=== PATIENT | female | born 1960 | race Caucasian/White ===

== ENCOUNTER → 2020-12-27 | Outpatient (CLI) | payer BC, OTHER ==
[~2020-12-27] MED LIST: ALBUTEROL2.5 MG/3 M INH; OMEPRAZOLE40 MG PO; ONDANSETRON HCL4 M2 PO; OXYCODONE HCL10 MG PO
== END ==
LOC: CAT 10:12 → RAD 10:12
PROVIDERS: ATTEND Internal Medicine
DX: R91.8 Other nonspecific abnormal finding of lung field (principal); J98.11 Atelectasis; J92.9 Pleural plaque without asbestos; J94.2 Hemothorax; R06.00 Dyspnea, unspecified

== ENCOUNTER 2021-01-02 06:11 | Inpatient (IN) | payer BC, OTHER ==
[2020-12-29 13:51] LABS: URINE BILIRUBIN NEGATIVE (Negative); URINE BLOOD TRACE (Negative); URINE CLARITY CLEAR; URINE COLOR YELLOW; URINE GLUCOSE-RANDOM* NEGATIVE (Negative); URINE KETONES NEGATIVE (Negative); URINE LEUKOCYTES-REFLEX NEGATIVE (Negative); URINE NITRITE-REFLEX NEGATIVE (Negative); URINE PROTEIN (DIPSTICK) NEGATIVE (Negative); URINE SPECIFIC GRAVITY >= 1.030 (1.005-1.035); URINE UROBILINOGEN 0.2 E.U./dl (0.2-1.0)
[2020-12-29 13:54] LABS: ABSOLUTE NEUTROPHILS 7.3 thou/uL (1.4-8.2); BASOPHILS 0.3 % (0.0-2.0); EOSINOPHILS 0.8 % (0.0-3.0); HEMATOCRIT 32.8 % (37.0-47.0); HEMOGLOBIN 10.5 gm/dL (12.0-15.0); LYMPHOCYTES 24.3 % (24.0-44.0); MCH 26.8 pg (26.0-34.0); MCHC 31.9 g/dL (28.0-37.0); MCV 83.9 fL (80.0-100.0); MONOCYTES 9.2 % (1.0-8.0); PLATELET COUNT 584 thou/uL (150-400); POLYS 65.4 % (36.0-66.0); RBC 3.91 mil/uL (4.20-5.00); WBC 11.2 thou/uL (4.0-11.0)
[2020-12-29 14:03] LABS: ALBUMIN 2.6 g/dL (3.4-5.0); APTT 29.1 Seconds (24.5-32.8); CALCIUM 8.9 mg/dL (8.5-10.1); INR 1.04; POTASSIUM 4.7 mmol/L (3.5-5.1); PROTIME 11.3 Seconds (10.5-12.1); TOTAL BILIRUBIN 0.3 mg/dL (0.2-1.0); TOTAL PROTEIN 6.8 g/dL (6.4-8.2)
--- NOTE | 2020-12-30 13:08 | EKG ---
[address] [address] ELECTROCARDIOGRAM REPORT Name: MARK SANTANA Room #: PRE IN ..#: [id number] Admission: Attend Phys: Mika Garcia MD Discharge: Date of : 56 Report #: [id number] [facility] Test Date: 2020-12-29 Test Time: 13:44:43 Pat Name: MARK SANTANA Department: Room: Gender: Parts Person: TASH : 1960 Requested By: Mika Garcia Order Number: [id number] MD: Vipin Ansari Measurements Intervals [place] Rate: 82 P: 30 WI: 156 QRS: -30 QRSD: 90 T: 11 QT: 374 QTc: 437 Interpretive Statements Sinus rhythm Probable left ventricular hypertrophy No previous ECG available for comparison Electronically Signed On 12-30-2020 13:08:40 CDT by Vipin Ansari [email or web address] <ELECTRONICALLY SIGNED> By: Vipin Ansari MD 12/30/20 1308 1344 1344 Vipin Ansari MD /EPI
[~2021-01-02] VITALS: Ht 160 cm; Wt 77.0 kg
[2021-01-02] VITALS (35 sets, daily range): BP systolic 114–138; BP diastolic 69–90
--- NOTE | 2021-01-02 15:15 | NUR ---
CASER UP PUMP CLEARED 3.5ML.
--- NOTE | 2021-01-02 18:46 | NUR ---
PT PROGRESSING TOWARDS GOALS. AMANDA CALDERA.
--- NOTE | 2021-01-02 19:12 | NUR ---
TOBACCO EDUCATOR PUMP CLEARED 5.0 ML.
--- NOTE | 2021-01-02 20:33 | NUR ---
This RN spoke to pharmacist at 2029. Patient arrived to ICU room 249 during day shift with a Fentanyl manager content pump running. Nurse in OR or PACU never scanned Fentanyl bag or signed blue sheet. Discussed issue with pharmacist. Was instructed to sign blue sheet, write note, and scan bag at this time. Will wrote note on blue sheet as well.
[2021-01-03] VITALS (8 sets, daily range): BP systolic 116–140; BP diastolic 64–78
[2021-01-03 04:47] LABS: HEMATOCRIT 26.3 % (37.0-47.0); HEMOGLOBIN 8.6 gm/dL (12.0-15.0); MCH 27.1 pg (26.0-34.0); MCHC 32.5 g/dL (28.0-37.0); MCV 83.5 fL (80.0-100.0); RBC 3.15 mil/uL (4.20-5.00); RDW 14.9 % (10.5-14.5); WBC 14.9 thou/uL (4.0-11.0)
[2021-01-03 05:16] LABS: CALCIUM 8.6 mg/dL (8.5-10.1); CREATININE 0.7 mg/dL (0.6-1.0); MAGNESIUM 2.2 mg/dL (1.8-2.4); POTASSIUM 4.3 mmol/L (3.5-5.1); TOTAL BILIRUBIN 0.2 mg/dL (0.2-1.0); TOTAL PROTEIN 6.6 g/dL (6.4-8.2)
--- NOTE | 2021-01-03 11:00 | NUR ---
TRANSFERED TO CCU VIA CHAIR TOLORATING ROOM AIR. ALL BELONGINGS WITH PT.
--- NOTE | 2021-01-03 11:44 | NUR ---
Case opened to follow for dc planning needs. Lead Php Developer visited with the pt at bedside. Cm role introduced. She is s/p thoracotomy and transfering out ot the ICU today. PT/OT evals pending. Pt is a&ox4 and indicates she was working and indep prior to surgery. She is now on medical leave for 6-8 weeks and has a supportive dtr and cousing who can help as needed at dc. She lives in [place], [place] and works at [employer]. She is hoping to dc home with outpt f/u, however should she need rehab/snf she would want to go to a swing bed at [facility]. She has not prior DME or HH. Will follow along.
--- NOTE | 2021-01-03 12:48 | NUR ---
PT ARRIVED FROM THE ICU AT 1130 WITH RN/HAIRSPRING I INSPECTOR ESCORT, PT ARRIVED WITH A HAIRSPRING I INSPECTOR, PUMP CLEARED AND RESET W/ HOUSEHOLD CHORES. ALL BELONGINGS AT BEDSIDE, CHEST TUBE RESTARTED TO SET PARAMETERS, PT SEEN PRACTICING INCENTIVE SPIROMETRY. PT AOX4 RESTING ON THE SOFA AT THIS TIME. CALL LIGHTS WERE PROVIDED, NOTIFIED TO CALL FOR ANY ASSISTANCE. LAST REPORTED PAIN OF 6, WATCHING TV WHILE USING THE HAIRSPRING I INSPECTOR PUMP
[2021-01-04 07:25] VITALS: BP 105/70
--- NOTE | 2021-01-04 09:20 | NUR ---
ASSUMED PT CARE AT 0700, DUE TO POC ASSESSMENT PERFORMED CHARTED AT THIS TIME. VSS. WILL CONTINUE TO MONITOR AND FOLLOW POC. PT C/O OF SOME PAIN FOLLOWING AMBULATION. PT ON LAYOUT FORMER PUMP, SEE EMAR FOR FURTHER INFORMATION
[2021-01-04 11:10] VITALS: BP 118/64
--- NOTE | 2021-01-04 12:17 | NUR ---
ASSESSMENT UNCHANGED. PT SITTING UP IN THE CHAIR. VSS. PT STATES PAIN IS BETTER FOLLOWING A REST PERIOD AFTER AMBULATION. WILL CONTINUE TO MONITOR AND FOLLOW POC.
[2021-01-04 15:23] VITALS: BP 111/68
[2021-01-04 20:24] VITALS: BP 152/82
[2021-01-05] VITALS (7 sets, daily range): BP systolic 104–120; BP diastolic 52–61
--- NOTE | 2021-01-05 08:39 | NUR ---
report given to con't ppoc, senior director marketing infusing and pt states only mild pain when moving,senior director marketing intact, vss, ct to h2o seal, calls for assistance, hopes to go home soon.
--- NOTE | 2021-01-05 14:37 | NUR ---
Followup dc planning visit with pt and dtr at bedside. Hh and rwalker recommended by therapy. Pt is agreeable. Pt will be home bound. Dtr to stay with her for a few days. Script for Rwalker given to Provider [employer] inhouse liason to issue this afternoon as pt will likely dc later this evening per CTS. Referral for hh called and faxed to [facility] and they can accept the pt but will not see her til Friday or Friday next week. All parties updated. Unit RN to fax final dc summary and instructions to this evening.
--- NOTE | 2021-01-05 15:58 | NUR ---
PT CARE ASSUMED AT 0700. ASSESSMENTS CHARTED. MEDICATIONS CHARTED. RH IV. LAC IV, D/C'D INFITRATED. SINUS RHYTHM. BSC. ACHS; REGULAR DIET. FENTANYL SCARF AND ANNEAL OPERATOR D/C'D PER DR NARANJO'S ORDER. PT DISCHARGED TO HOME. DISCHARGE PAPERWORK SIGNED. TELEMETRY D/C'D. RH IV D/C'D.
--- NOTE | 2021-01-18 12:55 | O ---
[facility] [place] [address] OPERATIVE REPORT Name: MARK SANTANA Room #: 212-P [facility] IN M.R.#: [id number] Admission: 01/02/21 Attend Phys: Mika Garcia MD Discharge: 01/05/21 Date of : 56 Report #: [id number] THIS REPORT FOR: cc: FAM - Family physician unknown FAM - Family physician unknown Mika Garcia MD ~ DOC #: [id number] Mika Garcia MD DATE OF SERVICE: 01/02/2021 PREOPERATIVE DIAGNOSIS: Pulmonary nodules, left lower lobe of lung. POSTOPERATIVE DIAGNOSIS: Pulmonary nodules, left lower lobe of lung. OPERATION: Bronchoscopy, left video-assisted thoracoscopy, thoracotomy, decortication with wedge resection x 2 of left lower lobe of lung. SURGEON: Dr. Mika Garcia. ELEMENTARY SCHOOL READING TEACHER: VICKI Knox. ANESTHESIA: General. INDICATIONS: The patient is a 60-year-old seen for Dr. Scott. The patient has 2 pulmonary nodules in the left lower lobe. There are also 2 smaller nodules on the right side. The patient had core biopsy done of left lower lobe nodule and unfortunately, the patient had hemorrhage which was symptomatic in the sense of causing discomfort and leading to oxygen requirements. In any event, this operation is indicated to make a definitive diagnosis (as the diagnosis from the needle biopsy was inconclusive) and also to treat the hemothorax and also conceivably to resect the lesion in a therapeutic manner. TECHNIQUE: After general anesthesia was established, flexible diagnostic bronchoscopy was performed. No endobronchial lesions were noted. A double lumen endotracheal tube was placed and its position ascertained under bronchoscopic guidance. The patient was positioned with left side up. Exposure was obtained through typical video-assisted thoracoscopy ports. It was clear, however, that there was not a well-established pleural space and that adhesions existed from either previous inflammatory disease of some sort or the recent biopsy. In any event, it was required to perform a posterolateral thoracotomy to adequately view and examine the lung. The lung was covered by a fibrous peel and we decorticated this as best we could. In addition, clot was removed from the pleural space. Ultimately, we decorticated the lower lobe and I was able to discern the 2 [facility] [address] [place] [address] OPERATIVE REPORT Name: SANTANAMARK Room #: 212-P [facility] IN .R.#: [id number] Admission: 01/02/21 Attend Phys: Mika Garcia MD Discharge: 01/05/21 Date of : 56 Report #: [id number] distinct lesions, 1 of the lesions was relatively close to the pleural surface and a Bovie excisional biopsy was done. This lesion was submitted for frozen section. A diagnosis of malignancy was not obtained at the time of surgery with adequate amount of tissue to examine. Therefore, a decision was made to perform a wedge resection of the second lesion with the thought that both lesions would represent the same thing and neither one after two attempts has shown no malignancy. Several applications of the stapler were required to complete the wedge resection of the second lesion. The rest of the lung was examined. Adhesions were divided and lung was freed from its investing reactive tissue. Hemostasis was ascertained. At this point, no other further resection was thought to be necessary. Hemostasis was ascertained. Two chest tubes were placed to drain the apical and basilar aspects of the pleural space and then the chest was closed in layers. It should be mentioned that the chest was opened with a nerve sparing muscle sparing approach, and we closed with the same goal. After the chest wall was reapproximated, the fascial and cutaneous layers were closed in layers. The patient was taken to the recovery area in good condition having tolerated the procedure well. All counts were reported as correct. Mika Garcia MD JF/DAVID/BRANDO <ELECTRONICALLY SIGNED> By: Mika Garcia MD 01/18/21 1255 1207 1258 Mika Garcia MD /nt
== END 2021-01-05 15:50 | disposition home health service (06) | DRG 165 ==
LOC: TBA 06:11 → 2N 06:11 → PRE 09:06 → ICU 13:27 → OR 15:35 → EDSTATUS 15:55 → PRE 16:07 → 2N 01-03 12:10
PROVIDERS: Physician Assistant; ADMIT Surgery Vascular Surgery; ATTEND Surgery Vascular Surgery
PROC: 0BNJ4ZZ Release Left Lower Lung Lobe, Percutaneous Endoscopic Approach (ICD-10-PCS; principal; 2021-01-02)
PROC: 0W9B40Z Drainage of Left Pleural Cavity with Drainage Device, Percutaneous Endoscopic Approach (ICD-10-PCS; principal; 2021-01-02)
PROC: 0BBJ4ZZ Excision of Left Lower Lung Lobe, Percutaneous Endoscopic Approach (ICD-10-PCS; principal; 2021-01-02)
DX: R91.1 Solitary pulmonary nodule (principal); K21.9 Gastro-esophageal reflux disease without esophagitis; Z86.16 Personal history of COVID-19; D50.0 Iron deficiency anemia secondary to blood loss (chronic); Z90.49 Acquired absence of other specified parts of digestive tract; Z87.891 Personal history of nicotine dependence
CPT/HCPCS: 10078; 10081; 47405; 50010; 50101; 50386; 50417; 50455; 50739; 50740; 51301; 52265; 54118; 56455; 56462; 56524; 56525; 56526; 56527; 56528; 62110; 62900; 65020; 65105; 65129; 65130; 70005